=== PATIENT | female | born 1985 | race Caucasian/White ===

== ENCOUNTER 2025-02-27 17:41 | Emergency (ER) | payer MEDICAID ==
[~2025-02-27] VITALS: Ht 157.5 cm; Wt 95.3 kg
[2025-02-27 18:48] VITALS: BP 111/74; TEMP 98.3; O2SAT 98
[2025-02-27] MEDS ORDERED: OLOP2.5D12 EACHEYE (20:28)
[2025-02-27] MEDS ORDERED: EPIN0.3P3 IM (20:28)
[2025-02-27] MEDS ORDERED: FAMO20TA80 PO (20:28)
[2025-02-27] MEDS ORDERED: DIPH25CA83 PO (20:28)
== END 2025-02-27 21:44 | disposition home or self-care (01) ==
LOC: ER 18:00
DX: T78.49XA Other allergy, initial encounter (principal); X58.XXXA Exposure to other specified factors, initial encounter